=== PATIENT | male | born 1950 | race Caucasian/White ===

== ENCOUNTER → 2017-11-28 | Outpatient (CLI) | payer MEDICARE, OTHER ==
--- NOTE | 2017-11-28 17:43 | RADIOLOGY REPORT (SQ) ---
EXAM DESCRIPTION: FOOT RIGHT COMPLETE COMPLETED DATE/TIME: 11/28/2017 3:43 pm REASON FOR STUDY: PAIN IN RIGHT FOOT M79.671 PAIN IN RIGHT FOOT COMPARISON: None. NUMBER OF VIEWS: Three views. TECHNIQUE: AP, lateral and oblique without weight bearing radiographic images acquired of the right foot. LIMITATIONS: None. FINDINGS: MINERALIZATION: Normal. BONES: No acute fracture or dislocation. No worrisome bone lesions. Degenerative changes of the 1st m etatarsal phalangeal and the IP joint of the great toe. Dorsal osteophytes of the talonavicular join t. JOINTS: No erosions. No sj-articular osteopenia. No chondrocalcinosis. SOFT TISSUES: No swelling. No calcifications. OTHER: No other significant finding. IMPRESSION: Degenerative changes. No definite erosions. No acute fracture. TECHNICAL DOCUMENTATION: JOB ID: [id number] [employer]- All Rights Reserved
== END ==
LOC: OD 15:03
PROVIDERS: ATTEND Family Medicine
DX: M79.671 Pain in right foot (principal)

== ENCOUNTER → 2018-01-16 | Outpatient (CLI) | payer MEDICARE, OTHER ==
--- NOTE | 2018-01-16 10:32 | RADIOLOGY REPORT (SQ) ---
EXAM DESCRIPTION: U/S RETROPERITON (RENAL/AORTA) COMPLETED DATE/TIME: 01/16/2018 10:02 am REASON FOR STUDY: CKD, UNSPEC (N18.9) N18.9 CHRONIC KIDNEY DISEASE, UNSPECIFIED COMPARISON: Bilateral renal ultrasound 02/13/2008 TECHNIQUE: Dynamic and static grayscale images acquired of the kidneys and bladder and recorded on P ACS. Additional selected color Doppler and spectral images recorded. LIMITATIONS: None. FINDINGS: RIGHT KIDNEY: 12.5 cm in length with diffuse cortical thinning and increased echogenicity. 2.6 cm right upper pole renal cortical cyst. No solid or suspicious masses. No hydronephrosis. No calcifications. LEFT KIDNEY: 13.4 cm in length, with diffuse cortical thinning and increased echogenicity. No solid or suspicious masses. No hydronephrosis. No calcifications. BLADDER: No masses. OTHER FINDINGS: No other significant finding. IMPRESSION: No hydronephrosis. Bilateral medical renal disease TECHNICAL DOCUMENTATION: JOB ID: [id number] [employer]- All Rights Reserved Reading location - IP/workstation name: [email or web address]
== END ==
LOC: RAD 08:55
PROVIDERS: ATTEND Family Medicine
DX: N18.9 Chronic kidney disease, unspecified (principal)
CPT/HCPCS: 76770

== ENCOUNTER → 2018-04-11 | Outpatient (CLI) | payer MEDICARE, OTHER ==
--- NOTE | 2018-04-11 12:42 | RADIOLOGY REPORT (SQ) ---
EXAM DESCRIPTION: VENOUS UNILATERAL LOWER COMPLETED DATE/TIME: 04/11/2018 12:23 pm REASON FOR STUDY: RLE PAIN, ACUTE EMBOI I82.431 ACUTE EMBOLISM AND THROMBOSIS OF RIGHT POPLITEAL VE I COMPARISON: None. TECHNIQUE: Dynamic and static ross scale and color images acquired of the right leg venous system. S elected spectral images acquired with additional compression and augmentation maneuvers. The contrala teral common femoral vein and saphenofemoral junction were also imaged. Images stored on PACS. LIMITATIONS: None. FINDINGS: COMMON FEMORAL: Normal phasicity, compression and augmentation. No visualized echogenic ma terial on ross scale. No defects on color images. FEMORAL: Normal compression and augmentation. No visualized echogenic material on ross scale. No defe cts on color images. POPLITEAL: Normal compression, augmentation. No visualized echogenic material on ross scale. No defec ts on color images. CALF VESSELS: Normal compression, augmentation. No visualized echogenic material on ross scale. No de fects on color images. GSV and SSV: Normal compression, augmentation. No visualized echogenic material on ross scale. No def ects on color images. ANY DEEP VENOUS INSUFFICIENCY: Not evaluated. ANY EVIDENCE OF POPLITEAL CYST: No. OTHER: No other significant finding. CONTRALATERAL COMMON FEMORAL VEIN AND SAPHENOFEMORAL JUNCTION: Normal phasicity, compression and augmentation. No visualized echogenic material on ross scale. No de fects on color images. IMPRESSION: NO EVIDENCE DVT OR SVT IN THE RIGHT LEG. TECHNICAL DOCUMENTATION: JOB ID: [id number] [employer]- All Rights Reserved Reading location - IP/workstation name: [email or web address]
== END ==
LOC: SP 10:21
PROVIDERS: ATTEND Podiatrist Foot & Ankle Surgery
DX: I82.431 Acute embolism and thrombosis of right popliteal vein (principal)
CPT/HCPCS: 93971

== ENCOUNTER → 2018-04-20 | Outpatient (CLI) | payer MEDICARE, OTHER ==
--- NOTE | 2018-04-20 08:15 | RADIOLOGY REPORT (SQ) ---
EXAM DESCRIPTION: CT BONE LENGTH COMPLETED DATE/TIME: 04/20/2018 7:49 am REASON FOR STUDY: LLD (Q72.819) Q72.819 CONGENITAL SHORTENING OF UNSPECIFIED LOWER LIMB COMPARISON: None. TECHNIQUE: CT scanogram of the bilateral lower extremities is performed including pelvis to ankles. Measurements of femur, tibia, and entire lower extremities performed by the radiologist and saved to PACS. All CT scanners at this facility use dose modulation, iterative reconstruction, and/or weight based d osing when appropriate to reduce radiation dose to as low as reasonably achievable (ALARA). [facility]: Dose Right [facility]: CareDose [facility]: Dose Right [facility]: Teradose 4D [facility]: [place] RADIATION DOSE: Less than 1 mGy. LIMITATIONS: None. FINDINGS: RIGHT: FEMUR: 49.4 cm. TIBIA: 40.5 cm. TOTAL RIGHT LOWER EXTREMITY LENGTH: 90.5 cm. LEFT: FEMUR: 50 cm. TIBIA: 40.5 cm. TOTAL LEFT LOWER EXTREMITY LENGTH: 91.0 cm. IMPRESSION: LEG LENGTH MEASUREMENTS DETAILED ABOVE. TECHNICAL DOCUMENTATION: JOB ID: [id number] Quality ID # [id number]: Final reports with documentation of one or more dose reduction techniques (e.g., Au tomated exposure control, adjustment of the mA and/or kV according to patient size, use of iterative reconstruction technique) 2010 [employer]- All Rights Reserved Reading location - IP/workstation name: [email or web address]
== END ==
LOC: RAD 07:19
PROVIDERS: ATTEND Podiatrist Foot & Ankle Surgery
DX: Q72.819 Congenital shortening of unspecified lower limb (principal)
CPT/HCPCS: 77073

== ENCOUNTER 2018-09-21 05:33 | Emergency (ER) | payer MEDICARE, OTHER ==
--- NOTE | 2018-09-21 06:59 | RADIOLOGY REPORT (SQ) ---
EXAM DESCRIPTION: XR SHOULDER 2 OR MORE VIEWS COMPLETED DATE/TME: 09/21/2018 00:00 CLINICAL HISTORY: Pain. 68 years Male, fall COMPARISON: None. Findings: Mild osteoarthritis. Partially imaged cardiac stimulation leads and sternotomy.. Bones, joints, and soft tissues of the RIGHT XR SHOULDER 3 VIEWS appear otherwise intact. IMPRESSION: No acute findings.
--- NOTE | 2018-09-21 07:00 | RADIOLOGY REPORT (SQ) ---
EXAM DESCRIPTION: XR HIP 2 OR MORE VIEWS COMPLETED DATE/TME: 09/21/2018 00:00 CLINICAL HISTORY: Pain. 68 years Male, fall COMPARISON: None. Findings: Mild osteoarthritis. Atherosclerosis. Bones, joints, and soft tissues of the RIGHT XR HIP 2 OR MORE VIEWS appear otherwise intact. IMPRESSION: No acute findings.
--- NOTE | 2018-09-21 07:01 | RADIOLOGY REPORT (SQ) ---
EXAM DESCRIPTION: XR KNEE 1-2 VIEWS COMPLETED DATE/TME: 09/21/2018 00:00 CLINICAL HISTORY: 68 years Male, FALL COMPARISON: None. Findings: Right total knee arthroplasty. Small right knee effusion.. Atherosclerosis. Bones, joints, and soft tissues of the RIGHT XR KNEE 2 VIEWS appear otherwise intact. IMPRESSION: Small right knee effusion..
[2018-09-21 08:19] VITALS: BP 126/68
--- NOTE | 2018-09-21 08:21 | ER Document Report ---
ED Hip Pain/Injury - General Chief Complaint: Hip Pain Stated Complaint: RIGHT HIP/SHOULDER PAIN Time Seen by Provider: 09/21/18 07:48 Notes: 68-year-old male who was taking out the garbage and tripped and fell on the steps. Patient complains of right shoulder and right knee and hip pain. He denies hitting his head or neck or have any loss of consciousness. The patient describes the pain as achy is worse with movement. The patient had a history of knee replacement on the right he want to be sure that this was okay. He will be traveling to [facility]. Patient denies any abdominal pain no chest pain or shortness of breath he did not pass out or have syncope before or lose consciousness with the fall. He rates the pain is severe is worse with movement. TRAVEL OUTSIDE OF THE [place] IN LAST 30 DAYS: No - Related Data Allergies/Adverse Reactions: No Known Allergies Allergy (Verified 09/21/18 07:25) Past Medical History - Social History Smoking Status: Unknown if Ever Smoked Family History: None Patient has suicidal ideation: No Patient has homicidal ideation: No - Past Medical History Cardiac Medical History: Reports: Hx Coronary Artery Disease, Hx Heart Attack, Hx Hypertension Pulmonary Medical History: Denies: Hx Asthma, Hx Bronchitis, Hx COPD, Hx Pneumonia Neurological Medical History: Denies: Hx Cerebrovascular Accident Renal/ Medical History: Denies: Hx Peritoneal Dialysis Musculoskeletal Medical History: Denies Hx Arthritis Past Surgical History: Reports: Hx Orthopedic Surgery - right knee replacement - Immunizations Hx Diphtheria, Pertussis, Tetanus Vaccination: Yes Review of Systems - Review of Systems Constitutional: denies: Chills, Fever Cardiovascular: denies: Chest pain, Dyspnea Respiratory: denies: Short of breath Gastrointestinal: denies: Abdominal pain, Diarrhea, Nausea, Vomiting Musculoskeletal: Joint pain, Muscle pain Skin: No symptoms reported Neurological/Psychological: denies: Lost consciousness, Headaches -: Yes All other systems reviewed and negative Physical Exam - Vital signs Vitals: Temp Pulse Resp BP Pulse Ox 97.8 F 75 16 137/74 H 96 09/21/18 05:37 09/21/18 05:37 09/21/18 05:37 09/21/18 05:37 09/21/18 05:37 - Notes Notes: GENERAL_APPEARANCE: well_nourished, alert, cooperative VITALS: reviewed, see vital signs table. HEAD: no_swelling\tenderness on the head. EYES: PERRL, EOMI, conjunctiva_clear. NOSE: no_nasal_discharge. MOUTH: (-)decreased moisture. THROAT: no_tonsilar_inflammation, no_airway_obstruction. no_lymphadenopathy NECK: supple, no_neck_tenderness, (-)thyromegaly. BACK: no_back_tenderness. CHEST_WALL: no_chest_tenderness. ABDOMEN: normal_BS, soft, no_abd_tenderness, (-)guarding, (-)rebound, no_ organomegaly, no_abd_masses. EXTREMITIES: He has some mild tenderness of the right greater trochanter there is no rotation shortening or ecchymosis noted, right knee has a midline incision which is well-healed. There is a bruise noted. Otherwise there is no sniffing abnormalities of the knee there is strong dorsalis pedis pulses distal. No open wounds are noted. Right shoulder had a little bit of discomfort on active and passive range of motion notes deformity no swelling. SKIN: warm, dry, good_color, no_rash. MENTAL_STATUS: speech_clear, oriented_X_3, normal_affect, responds_ appropriately to questions. NEURO: Neg Motor or Sensory Deficits on exam, CN 2-12 intact, DTR 2+ symmetric x 4, No cerbellar signs Course - Re-evaluation Re-evalutation: 09/21/18 08:20 Elderly male mechanical fall. No fractures noted on x-rays he has bruised up. The knee had a little bit of an effusion but it is replaced knee is slightly due to bruising. He is able to walk without difficulty but he is sore. I advised him to use jjua-cng-dybedom medicines but there are no fractures noted he suffered no head or neck injuries. And will be discharged home. - Vital Signs Vital signs: Temp Pulse Resp BP Pulse Ox 97.8 F 75 16 137/74 H 96 09/21/18 05:37 09/21/18 05:37 09/21/18 05:37 09/21/18 05:37 09/21/18 05:37 - Diagnostic Test Radiology reviewed: Reports reviewed Radiology results interpreted by me: 09/21/18 08:20 Hip/Pelvis X-Ray 09/21/18 00:00 IMPRESSION: No acute findings. Knee X-Ray 09/21/18 00:00 IMPRESSION: Small right knee effusion.. Shoulder X-Ray 09/21/18 00:00 IMPRESSION: No acute findings. Discharge - Discharge Clinical Impression: Fall Qualifiers: Encounter type: initial encounter Qualified Code(s): W19.XXXA - Unspecified fall, initial encounter Contusion of right knee Qualifiers: Encounter type: initial encounter Qualified Code(s): S80.01XA - Contusion of right knee, initial encounter Contusion of right hip Qualifiers: Encounter type: initial encounter Qualified Code(s): S70.01XA - Contusion of right hip, initial encounter Sprain of right shoulder Qualifiers: Encounter type: initial encounter Shoulder sprain type: other part of shoulder region Qualified Code(s): S43.491A - Other sprain of right shoulder joint, initial encounter Condition: Good Disposition: HOME, SELF-CARE Instructions: Shoulder Injury ([facility]), Suspected Internal Knee Injury ([facility]) Additional Instructions: Please follow-up with your orthopedist as needed. No fractures were noted on your x-rays. Referrals: ZAIRA CAMACHO MD [Primary Care Provider] - Follow up as needed
== END 2018-09-21 08:25 | disposition home or self-care (01) ==
LOC: ER 05:33
DX: S80.01XA Contusion of right knee, initial encounter (principal); S70.01XA Contusion of right hip, initial encounter; S43.491A Other sprain of right shoulder joint, initial encounter; W10.9XXA Fall (on) (from) unspecified stairs and steps, initial encounter; Y93.E9 Activity, other interior property and clothing maintenance; I25.10 Atherosclerotic heart disease of native coronary artery without angina pectoris; I25.2 Old myocardial infarction; I10 Essential (primary) hypertension; Z96.651 Presence of right artificial knee joint
CPT/HCPCS: 99283

== ENCOUNTER 2019-04-06 08:44 | Emergency (ER) | payer MEDICARE, OTHER ==
--- NOTE | 2019-04-06 09:28 | ER Document Report ---
ED Medical Screen (RME) - General Chief Complaint: Bloody Stools Stated Complaint: ABNORMAL BLEEDING Time Seen by Provider: 04/06/19 09:18 Primary Care Provider: ZAIRA CAMACHO MD [Primary Care Provider] - Follow up as needed Notes: Patient is a 68-year-old male with a history of cardiac bypass, AICD placement, hypertension, high cholesterol who presents to the emergency department with a chief complaint of rectal bleeding. States that 3 days ago he noticed he was having black stools. Patient states he does have a history of GI bleed. Patient states over the past 3 days he has had 10 formed black stools. Patient denies bright red blood in his stools. Patient denies nausea vomiting or diarrhea. Patient denies abdominal pain. Patient states he is on Xarelto for "multiple heart issues." Patient states that he was diagnosed with vertigo 3 months ago as he was having symptoms of lightheadedness when getting up. States he continues to have the symptoms although the lightheadedness has gotten worse. Patient states he will get up, feel like he is going to pass out, and then the stabilizes. Patient denies passing out. Patient denies chest pain or shortness of breath. Patient states he wanted to get checked out before things got bad. - Related Data Allergies/Adverse Reactions: No Known Allergies Allergy (Verified 04/06/19 08:46) Past Medical History - Social History Chew tobacco use (# tins/day): No Frequency of alcohol use: None Drug Abuse: None - Past Medical History Cardiac Medical History: Reports: Hx Coronary Artery Disease, Hx Heart Attack, Hx Hypertension Pulmonary Medical History: Denies: Hx Asthma, Hx Bronchitis, Hx COPD, Hx Pneumonia Neurological Medical History: Denies: Hx Cerebrovascular Accident Renal/ Medical History: Denies: Hx Peritoneal Dialysis Musculoskeltal Medical History: Denies Hx Arthritis Past Surgical History: Reports: Hx Orthopedic Surgery - right knee replacement - Immunizations Hx Diphtheria, Pertussis, Tetanus Vaccination: Yes Physical Exam - Vital signs Vitals: Temp Pulse Resp BP Pulse Ox 97.7 F 67 16 154/73 H 96 04/06/19 08:52 04/06/19 08:52 04/06/19 08:52 04/06/19 08:52 04/06/19 08:52 Interpretation: Hypertensive - Abdominal Notes: Obese, round abdomen, soft, nontender. Course - Re-evaluation Re-evalutation: 04/06/19 09:28 I have greeted and performed a rapid initial assessment of this patient. A comprehensive ED assessment and evaluation of the patient, analysis of test results and completion of the medical decision making process will be conducted by additional ED providers. - Vital Signs Vital signs: Temp Pulse Resp BP Pulse Ox 97.7 F 67 16 154/73 H 96 04/06/19 08:52 04/06/19 08:52 04/06/19 08:52 04/06/19 08:52 04/06/19 08:52 Doctor's Discharge - Discharge Referrals: ZAIRA CAMACHO MD [Primary Care Provider] - Follow up as needed
[2019-04-06] MEDS ORDERED: PANTOPRAZOLE SODIUM 40 MG VIAL IV ONE (10:10)
--- NOTE | 2019-04-06 10:12 | ER Document Report ---
ED General - General Chief Complaint: Bloody Stools Stated Complaint: ABNORMAL BLEEDING Time Seen by Provider: 04/06/19 09:18 Primary Care Provider: ZAIRA CAMACHO MD [Primary Care Provider] - Follow up as needed Notes: Patient with history of bleeding ulcers on Xarelto presents with rectal bleeding. Describes dark tarry stool for about 3 weeks worsening. No belly pain. No bright red blood. Had a colonoscopy in the last year which was normal. History of bleeding ulcer. Now he is getting dizzy when he stands up. Was with Dr. Yan from GI TRAVEL OUTSIDE OF THE [place] IN LAST 30 DAYS: No - Related Data Allergies/Adverse Reactions: No Known Allergies Allergy (Verified 04/06/19 08:46) Past Medical History - Social History Smoking Status: Never Smoker Chew tobacco use (# tins/day): No Frequency of alcohol use: None Drug Abuse: None Family History: None Patient has suicidal ideation: No Patient has homicidal ideation: No - Past Medical History Cardiac Medical History: Reports: Hx Coronary Artery Disease, Hx Heart Attack, Hx Hypertension Pulmonary Medical History: Denies: Hx Asthma, Hx Bronchitis, Hx COPD, Hx Pneumonia Neurological Medical History: Denies: Hx Cerebrovascular Accident Renal/ Medical History: Denies: Hx Peritoneal Dialysis Musculoskeletal Medical History: Denies Hx Arthritis Past Surgical History: Reports: Hx Orthopedic Surgery - right knee replacement - Immunizations Hx Diphtheria, Pertussis, Tetanus Vaccination: Yes Review of Systems - Review of Systems Notes: REVIEW OF SYSTEMS GEN: Denies fever, chills, weight loss ENT: Denies sore throat, nasal discharge, ear pain EYES: Denies blurry vision, eye pain, discharge CV: Denies chest pain, palpitations, edema RESP: Denies cough, shortness of breath, wheezing GI: June MSK: Denies joint pain/swelling, edema, SKIN: Denies rash, skin lesions LYMPH: Denies swollen glands/lymph nodes NEURO: Denies headache, focal weakness or numbness, dizziness PSYCH: Denies depression, suicidal or homicidal ideation PHYSICAL EXAMINATION General: No acute distress, well-nourished Head: Atraumatic, normocephalic ENT: Mouth normal, oropharynx moist, no exudates or tonsillar enlargement Eyes: Conjunctiva normal, pupils equal, lids normal Neck: No JVD, supple, no guarding CVS: Normal rate, regular rhythm, no murmurs Resp: No resp distress, equal and normal breath sounds bilaterally GI: Melena present Ext: No deformities, no edema, normal range of motion in upper and lower ext Back: No CVA or midline TTP Skin: No rash, warm Lymphatic: No lymphadeopathy noted Neuro: Awake, alert. Face symmetric. GCS 15. Physical Exam - Vital signs Vitals: Temp Pulse Resp BP Pulse Ox 97.7 F 67 16 154/73 H 96 04/06/19 08:52 04/06/19 08:52 04/06/19 08:52 04/06/19 08:52 04/06/19 08:52 Course - Re-evaluation Re-evalutation: 04/06/19 10:11 Upper GI bleed with melena. Hemodynamically stable. Beginning to get symptomatic likely from anemia. Will assess degree of anemia. GI bleed seems slow clinically. Given Protonix bolus. We will hold off on drip. No liver disease and octreotide. Type and screen sent for possible transfusion. 04/06/19 12:01 Patient hemoglobin is stable at 11.5 over the past month. He now tells me this is been going on for 3 months. I offered admission/transfer for GI endoscopy but he does not want to wait. I spoke with his GI doctor, Dr. Yan, who says he cannot scope the patient over the weekend if he were to be admitted. He did offer to scope the patient next week. The patient had a very long conversation which expressed a desire not to stay and thinks that he is stable. Rather than signing him out AMA I did give him all proper return precautions. He has a history of stroke and has been on anti-coag elation for a while now, and I think is probably worse to take him off of his anticoagulant and so we kept it on out of the twice daily proton pump inhibitor. Dr. Nevarez schedule the patient for an endoscopy this coming 10:45 in the morning. I have discussed with the patient there likely diagnosis, aftercare plan, follow-up plans and my usual and customary return precautions. They verbalized understanding of this. - Vital Signs Vital signs: Temp Pulse Resp BP Pulse Ox 98.6 F 62 16 116/82 98 04/06/19 11:05 04/06/19 11:05 04/06/19 11:05 04/06/19 11:05 04/06/19 11:05 - Laboratory Result Diagrams: 04/06/19 10:20 04/06/19 10:20 Laboratory results interpreted by me: 04/06/19 04/06/19 04/06/19 10:20 10:20 10:20 RBC 3.71 L Hgb 11.5 L Hct 34.2 L RDW 17.6 H PT 18.8 H APTT 39.1 H Potassium 5.2 H BUN 60 H Creatinine 1.59 H Est GFR ( Amer) 52 L Est GFR (Non-Af Amer) 43 L Glucose 73 L Urine Ascorbic Acid 04/06/19 10:20 RBC Hgb Hct RDW PT APTT Potassium BUN Creatinine Est GFR ( Amer) Est GFR (Non-Af Amer) Glucose Urine Ascorbic Acid 40 H Discharge - Discharge Clinical Impression: Melena Condition: Fair Disposition: HOME, SELF-CARE Instructions: Rectal Bleeding, Unclear Cause ([facility]) Additional Instructions: As we discussed, you are having an upper gastrointestinal bleed. It is worsened by the fact that you are on a blood thinner. After discussion of the risks and benefits, and recommendation that you stay to be transferred given that we do not have a GI doctor to scope you you have elected to be discharged. It is very important that he return the emergency room for any worse dizziness dark stool bloody stool or vomiting blood. Please also return to the ER for any other concerning symptoms. I spoken with Dr. NAGEL who has scheduled you for 10:30 in the morning this coming for an endoscopy. His office will contact call you with instructions Prescriptions: RX: Lansoprazole [Prevacid] 30 mg PO BID #30 capsule. Referrals: ZAIRA CAMACHO MD [Primary Care Provider] - Follow up as needed
[2019-04-06 10:47] LABS: ABSOLUTE BASOPHILS # (AUTO) 0.1 10^3/uL (0.0-0.2); ABSOLUTE EOSINOPHILS # (AUTO) 0.3 10^3/uL (0.0-0.6); ABSOLUTE LYMPHOCYTES (AUTO) 1.6 10^3/uL (0.5-4.7); ABSOLUTE MONOCYTES (AUTO) 0.7 10^3/uL (0.1-1.4); ABSOLUTE NEUT (AUTO) 5.3 10^3/uL (1.7-8.2); BASOPHILS % (AUTO) 0.8 % (0-2); HEMATOCRIT 34.2 % (37.9-51.0); HEMOGLOBIN 11.5 g/dL (13.5-17.0); MEAN CORPUSCULAR HEMOGLOBIN 31.1 pg (27.0-33.4); MEAN CORPUSCULAR HGB CONC 33.7 g/dL (32.0-36.0); MEAN CORPUSCULAR VOLUME 92 fl (80-97); PLATELET COUNT 209 10^3/uL (150-450); RED BLOOD COUNT 3.71 10^6/uL (4.35-5.55); RED CELL DISTRIBUTION WIDTH 17.6 % (11.5-14.0); SEGMENTED NEUTROPHILS % (AUTO) 66.2 % (42-78); TOTAL CELLS COUNTED % (AUTO) 100 %
[2019-04-06 10:53] LABS: INTERNATIONAL RATION (INR) 1.49; PROTHROMBIN TIME 18.8 SEC (11.4-15.4)
[2019-04-06 10:54] LABS: PARTIAL THROMBOPLASTIN TIME 39.1 SEC (23.5-35.8)
[2019-04-06 10:58] LABS: APPEARANCE,URINE CLEAR; BILIRUBIN,URINE NEGATIVE (NEGATIVE); COLOR,URINE YELLOW; GLUCOSE, URINE NEGATIVE (NEGATIVE); KETONES,URINE NEGATIVE (NEGATIVE); LEUKOCYTE ESTERASE,URINE NEGATIVE (NEGATIVE); NITRITE,URINE NEGATIVE (NEGATIVE); PROTEIN,URINE NEGATIVE (NEGATIVE); URINE SPECIFIC GRAVITY 1.009; UROBILINOGEN,URINE NEGATIVE mg/dL (<2.0)
[2019-04-06 11:06] VITALS: BP 116/82
[2019-04-06 11:09] LABS: ALANINE AMINOTRANSFERASE 27 U/L (21-72); ALBUMIN 4.3 g/dL (3.5-5.0); ALKALINE PHOSPHATASE 55 U/L (38-126); ANION GAP 10 (5-19); ASPARTATE AMINO TRANSFERASE 28 U/L (17-59); BILIRUBIN,DIRECT 0.3 mg/dL (0.0-0.4); BILIRUBIN,TOTAL 0.8 mg/dL (0.2-1.3); BLOOD UREA NITROGEN 60 mg/dL (7-20); CALCIUM 9.2 mg/dL (8.4-10.2); CARBON DIOXIDE 24 mmol/L (22-30); CHLORIDE 106 mmol/L (98-107); GLUCOSE 73 mg/dL (75-110); POTASSIUM 5.2 mmol/L (3.6-5.0); SODIUM 139.7 mmol/L (137-145)
== END 2019-04-06 11:10 | disposition home or self-care (01) ==
LOC: ER 08:44
DX: K92.1 Melena (principal); R42 Dizziness and giddiness; I25.10 Atherosclerotic heart disease of native coronary artery without angina pectoris; I10 Essential (primary) hypertension; I25.2 Old myocardial infarction; Z79.02 Long term (current) use of antithrombotics/antiplatelets; Z53.29 Procedure and treatment not carried out because of patient's decision for other reasons
CPT/HCPCS: 99284; 96365; 86900; 86901; 36415; 86850; 85025; 85610; 85730; 80053; 81001; C9113; S0164

== ENCOUNTER 2019-04-24 21:52 | Emergency (ER) | payer MEDICARE, OTHER ==
[2019-04-24] MEDS ORDERED: METHYLPREDNISOLONE INJ 125 MG/2 ML SDV IV ONE (23:43)
[2019-04-24] MEDS ORDERED: FAMOTIDINE INJ/PF 20 MG/2 ML SDV IV ONE (23:43)
[2019-04-25 00:05] VITALS: BP 106/66
[2019-04-25] MEDS ORDERED: DIPHENHYDRAMINE HCL 50 MG CAPSULE PO ONE (00:06)
--- NOTE | 2019-04-25 00:13 | ER Document Report ---
ED General - General Chief Complaint: Allergic Reaction Stated Complaint: POSSIBLE ALLERGIC REACTION, SWELLING THROAT, ITCH Time Seen by Provider: 04/24/19 23:16 Primary Care Provider: ZAIRA CAMACHO MD [Primary Care Provider] - Follow up as needed Mode of Arrival: Ambulatory Information source: Patient TRAVEL OUTSIDE OF THE [place] 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 Tonight he noted some swelling in the location where he was having the cream applied left greater than right side of the face with sensation that he was having mild trouble clearing his throat and swallowing. The patient denies any chest pain or difficulty breathing or fever or chills or nausea or vomiting. No other skin rash. No constipation, diarrhea, dysuria. No abdominal pain. No other medication changes. - Related Data Allergies/Adverse Reactions: No Known Allergies Allergy (Verified 04/24/19 22:06) Past Medical History - General Information source: Patient - Social History Smoking Status: Unknown if Ever Smoked Frequency of alcohol use: None Drug Abuse: None Lives with: Alone Family History: None - Past Medical History Cardiac Medical History: Reports: Hx Coronary Artery Disease, Hx Heart Attack, Hx Hypertension Pulmonary Medical History: Denies: Hx Asthma, Hx Bronchitis, Hx COPD, Hx Pneumonia Neurological Medical History: Denies: Hx Cerebrovascular Accident Renal/ Medical History: Denies: Hx Peritoneal Dialysis Musculoskeletal Medical History: Denies Hx Arthritis Past Surgical History: Reports: Hx Orthopedic Surgery - right knee replacement - Immunizations Hx Diphtheria, Pertussis, Tetanus Vaccination: Yes Review of Systems - Review of Systems -: Yes All other systems reviewed and negative Physical Exam - Vital signs Vitals: Temp Pulse Resp BP Pulse Ox 98.0 F 78 22 H 126/67 H 97 04/24/19 22:09 04/24/19 22:09 04/24/19 22:09 04/24/19 22:09 04/24/19 22:09 - Notes Notes: PHYSICAL EXAMINATION: GENERAL: Well-appearing, well-nourished and in no acute distress. HEAD: Atraumatic, normocephalic. EYES: Pupils equal round and reactive to light, extraocular movements intact, sclera anicteric, conjunctiva are normal. ENT: Nares patent, oropharynx clear without exudates. Moist mucous membranes. Patient has mild swelling left greater than right lower face where he was applying the cream. No obvious cellulitis or evidence for abscess. Posterior pharynx is clear without evidence for swelling. Good dentition without evidence for infection. NECK: Normal range of motion, supple without lymphadenopathy LUNGS: Breath sounds clear to auscultation bilaterally and equal. No wheezes rales or rhonchi. HEART: Regular rate and rhythm without murmurs ABDOMEN: Soft, nontender, nondistended abdomen. No guarding, no rebound. No masses appreciated. Musculoskeletal: Normal range of motion, no pitting or edema. No cyanosis. NEUROLOGICAL: Cranial nerves grossly intact. Normal speech, normal gait. Normal sensory, motor exams . PSYCH: Normal mood, normal affect. SKIN: Warm, Dry, normal turgor, no rashes or lesions noted. Course - Re-evaluation Re-evalutation: 04/25/19 00:13 Patient was given IV Solu-Medrol and Pepcid and had significant improvement in his symptoms. He was able to swallow without difficulty. No evidence for anaphylaxis or hypotension or systemic reaction or respiratory compromise. - Vital Signs Vital signs: Temp Pulse Resp BP Pulse Ox 97.6 F 78 14 106/66 97 04/25/19 00:00 04/24/19 22:09 04/25/19 00:00 04/25/19 00:00 04/25/19 00:00 Discharge - Discharge Clinical Impression: Allergic reaction caused by a drug Qualifiers: Encounter type: initial encounter Qualified Code(s): T78.40XA - Allergy, unspecified, initial encounter Condition: Stable Disposition: HOME, SELF-CARE Instructions: Acute Allergic Reaction to Drugs ([facility]) Additional Instructions: Stop using the ketoconazole and triamcinolone creams. Take Benadryl as directed for any recurrent rash or itching or swelling. Take prednisone taper if your allergic reaction symptoms and swelling continue. Return to the emergency department in case of worsening swelling or difficulty breathing. Prescriptions: Prednisone [Deltasone 10 mg Tablet] 10 mg PO ASDIR PRN #21 tablet PRN Reason: Referrals: ZAIRA CAMACHO MD [Primary Care Provider] - Follow up as needed
== END 2019-04-25 00:27 | disposition home or self-care (01) ==
LOC: ER 21:52
DX: T78.40XA Allergy, unspecified, initial encounter (principal); R21 Rash and other nonspecific skin eruption; Z79.899 Other long term (current) drug therapy; I25.10 Atherosclerotic heart disease of native coronary artery without angina pectoris; I10 Essential (primary) hypertension
CPT/HCPCS: 99283; 96374; 96375; A9270; J2930; S0028

== ENCOUNTER → 2020-04-16 | Outpatient (CLI) | payer MEDICARE, OTHER ==
--- NOTE | 2020-04-16 11:40 | RADIOLOGY REPORT (SQ) ---
EXAM DESCRIPTION: VENOUS UNILATERAL LOWER IMAGES COMPLETED DATE/TIME: 04/16/2020 11:07 am REASON FOR STUDY: LLE PAIN M79.662 PAIN IN LEFT LOWER LEG COMPARISON: None. TECHNIQUE: Dynamic and static ross scale and color images acquired of the left leg venous system. Se lected spectral images acquired with additional compression and augmentation maneuvers. The contralat eral common femoral vein and saphenofemoral junction were also imaged. Images stored on PACS. LIMITATIONS: None. FINDINGS: COMMON FEMORAL: Normal phasicity, compression and augmentation. No visualized echogenic ma terial on ross scale. No defects on color images. FEMORAL: Normal compression and augmentation. No visualized echogenic material on ross scale. No defe cts on color images. POPLITEAL: Normal compression, augmentation. No visualized echogenic material on ross scale. No defec ts on color images. CALF VESSELS: Normal compression, augmentation. No visualized echogenic material on ross scale. No de fects on color images. GSV and SSV: Normal compression, augmentation. No visualized echogenic material on ross scale. No def ects on color images. ANY DEEP VENOUS INSUFFICIENCY: Not evaluated. ANY EVIDENCE OF POPLITEAL CYST: There is a complex 6.6 x 2.4 x 4.5 cm fluid collection in the poplite al fossa consistent with popliteal cyst. OTHER: No other significant finding. CONTRALATERAL COMMON FEMORAL VEIN AND SAPHENOFEMORAL JUNCTION: Normal phasicity, compression and augmentation. No visualized echogenic material on ross scale. No de fects on color images. IMPRESSION: 1. No evidence of DVT or SVT in the left leg. 2. Complex 6.6 x 2.4 x 4.5 cm fluid collection in the popliteal fossa most likely representing compl ex popliteal cyst. TECHNICAL DOCUMENTATION: JOB ID: [id number] 2010 [employer]- All Rights Reserved Reading location - IP/workstation name: [email or web address]
== END ==
LOC: SP 10:09
PROVIDERS: ATTEND Orthopaedic Surgery Sports Medicine
DX: M79.662 Pain in left lower leg (principal)
CPT/HCPCS: 93971

== ENCOUNTER 2020-07-03 03:00 | Emergency (ER) | payer MEDICARE, OTHER ==
--- NOTE | 2020-07-03 03:37 | ER Document Report ---
ED Medical Screen (RME) - General Chief Complaint: Testicular Swelling Stated Complaint: SWOLLEN TESTICLES Time Seen by Provider: 07/03/20 03:30 Primary Care Provider: GIO MARLOW MD [Primary Care Provider] - Follow up as needed Notes: This patient is a 70-year-old male who presents emergency department with a chief complaint of testicular pain. Patient states that his symptoms started on Tuesday, which was 2 days ago. Patient states that he has an appointment with his urologist and 9:00 in the morning. Patient states that the pain is getting worse. States that the area has been bleeding. States that he has had some chills. Exam: Exam limited due to patient in triage and not in a gown. I am not quite sure if the patient is hard of hearing, or confused. He did not answer questions appropriately, but was able to recall events related to HPI. I have greeted and performed a rapid initial assessment of this patient. A comprehensive ED assessment and evaluation of the patient, analysis of test results and completion of medical decision making process will be conducted by an additional ED providers. TRAVEL OUTSIDE OF THE [place] IN LAST 30 DAYS: No - Related Data Allergies/Adverse Reactions: No Known Allergies Allergy (Verified 07/03/20 03:29) Past Medical History - Past Medical History Cardiac Medical History: Reports: Hx Coronary Artery Disease, Hx Heart Attack, Hx Hypertension Pulmonary Medical History: Denies: Hx Asthma, Hx Bronchitis, Hx COPD, Hx Pneumonia Neurological Medical History: Denies: Hx Cerebrovascular Accident Renal/ Medical History: Denies: Hx Peritoneal Dialysis Musculoskeltal Medical History: Denies Hx Arthritis Past Surgical History: Reports: Hx Orthopedic Surgery - right knee replacement - Immunizations Hx Diphtheria, Pertussis, Tetanus Vaccination: Yes Physical Exam - Vital signs Vitals: Temp Pulse Resp BP Pulse Ox 98.2 F 90 20 153/91 H 96 07/03/20 03:07/03/20 03:07/03/20 03:07/03/20 03:07/03/20 03:26 Course - Vital Signs Vital signs: Temp Pulse Resp BP Pulse Ox 98.2 F 90 20 153/91 H 96 07/03/20 03:07/03/20 03:07/03/20 03:07/03/20 03:07/03/20 03:26 Doctor's Discharge - Discharge Referrals: GIO MARLOW MD [Primary Care Provider] - Follow up as needed
--- NOTE | 2020-07-03 04:53 | RADIOLOGY REPORT (SQ) ---
TESTICULAR ULTRASOUND: 07/03/2020 3:50 AM CDT HISTORY: 70-year old patient with testicular pain and bleeding. COMPARISON: None available TECHNIQUE: Multiple longitudinal and transverse sonographic images were obtained of the right and left testicle. Color and spectral doppler images were obtained of the testicular vasculature. FINDINGS: Both testicles appear homogenous without evidence of a mass. There is diffuse scrotal wall thickening present. The left testicle appears normal in size, and it measures 3.8 x 3.0 x 2.2 cm. The left testicle appears homogeneous in echotexture and demonstrates arterial blood flow within the testicle. The left epididymal head appears normal in size and does not appear hyperemic. There is an epididymal head cyst or spermatocele measuring at least 1.2 cm on the left. The right testicle appears normal in size, and it measures 3.7 x 2.8 x 2.3 cm. The right testicle appears homogeneous in echotexture and demonstrates good arterial blood flow within the testicle. The right epididymal head appears normal in size and does not appear hyperemic. There is a heterogeneous hypoechoic area noted on the underside of the scrotum measuring at least 5.5 x 4.9 x 3.2 cm. This has increased peripheral vascularity. There may be some internal air. IMPRESSION: 1. No evidence is seen to suggest testicular torsion. 2. No intratesticular mass is seen. 3. There is a fluid collection concerning for an abscess at the inferior aspect of the scrotum. This may have some internal air. Necrotizing fasciitis is not excluded.
[2020-07-03] MEDS ORDERED: ONDANSETRON HCL INJ/PF 4 MG/2 ML SDV IV ONE (06:37)
[2020-07-03] MEDS ORDERED: PIPERACILLIN/TAZOBACTAM 3.375 GM VIAL IV ONE (06:37)
[2020-07-03] MEDS ORDERED: MORPHINE SULFATE 10 MG/ML INJ IV ONE (06:38)
[2020-07-03] MEDS ORDERED: NORMAL SALINE 1000 ML 1,000 ML IV ONE ×2 (06:38→11:05)
--- NOTE | 2020-07-03 06:46 | ER Document Report ---
ED General - General Chief Complaint: Testicular Pain Stated Complaint: SWOLLEN TESTICLES Time Seen by Provider: 07/03/20 03:30 Primary Care Provider: GIO MARLOW MD [Primary Care Provider] - Follow up as needed TRAVEL OUTSIDE OF THE [place] IN LAST 30 DAYS: No - HPI Notes: Chief complaint: Testicular pain and low back pain History of present illness: 70-year-old male presents with 48-hour history of severe low back pain and testicular swelling and pain. He is noted some purulent drainage on his underwear. He denies fever chills. He denies nausea vomiting. He saw PA in the office in [facility] at onset of symptoms and he says he was given oxycodone and not given a specific diagnosis. He feels his condition is getting worse he describes his pain is 10/10 currently. Patient is a rambling rather poor historian. 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 He is not diabetic. He reports no allergies. Denies use of tobacco or alcohol. His only other previous major surgery was a right knee replacement. - Related Data Allergies/Adverse Reactions: No Known Allergies Allergy (Verified 07/03/20 03:29) Past Medical History - General Information source: Patient, [facility] Records - Social History Smoking Status: Former Smoker Frequency of alcohol use: None Drug Abuse: None Family History: None - Past Medical History Cardiac Medical History: Reports: Hx Atrial Fibrillation, Hx Coronary Artery Disease, Hx Heart Attack, Hx Hypertension Pulmonary Medical History: Denies: Hx Asthma, Hx Bronchitis, Hx COPD, Hx Pneumonia Neurological Medical History: Denies: Hx Cerebrovascular Accident Endocrine Medical History: Denies: Hx Diabetes Mellitus Type 1, Hx Diabetes Mellitus Type 2 Renal/ Medical History: Denies: Hx Peritoneal Dialysis Musculoskeletal Medical History: Denies Hx Arthritis Past Surgical History: Reports: Hx Orthopedic Surgery - right knee replacement - Immunizations Hx Diphtheria, Pertussis, Tetanus Vaccination: Yes Review of Systems - Review of Systems Notes: Constitutional: Negative for fever. HENT: Negative for sore throat. Eyes: Negative for visual changes. Cardiovascular: Negative for chest pain. Respiratory: Negative for shortness of breath. Gastrointestinal: Negative for abdominal pain, vomiting or diarrhea. Genitourinary: As per HPI. Musculoskeletal: As per HPI. Skin: Negative for rash. Neurological: Negative for headaches, weakness or numbness. 10 point ROS negative except as marked above and in HPI. Physical Exam - Vital signs Vitals: Temp Pulse Resp BP Pulse Ox 98.2 F 90 20 153/91 H 96 07/03/20 03:07/03/20 03:07/03/20 03:07/03/20 03:07/03/20 03:26 - Notes Notes: GENERAL: Mildly obese elderly man who appears in moderate discomfort. SKIN: Good turgor no rashes. HEAD: Normocephalic atraumatic. EYES: PERRLA. EOMI. Conjunctivae and sclerae clear. EARS: CANALS AND TMS CLEAR. NOSE: CLEAR. MOUTH: Moist mucosa. Good dentition. No stridor or edema. No drooling. NECK: Supple. No masses or thyromegaly. No adenopathy. Carotids 2+ without bruits. No JVD. BACK: Symmetrical without tenderness. CHEST: Respirations unlabored. Breath sounds clear and symmetrical. HEART: Healed CABG scar present. Regular rhythm. No murmur gallop or rub. ABDOMEN: Soft mildly obese nontender without masses, organomegaly or rebound. Bowel sounds normally active. No bruits. GENITALIA: Uncircumcised male. Patient has a 5.0 cm diameter area of fluctuance and tenderness with some purulent drainage along the midline posterior scrotum. This area is exquisitely tender and red. EXTREMITIES: No edema. No calf tenderness. Cap refill less than 1.5 seconds. Dorsalis pedis and posterior tibial pulses 3+ and symmetrical. NEUROLOGICAL: GCS 15. Slight latency in answering questions and seems to have difficulty recalling details of his history but otherwise oriented x3. Normal gait. Fluent speech. Cranial nerves II through XII intact. Sensorimotor and cerebellar normal. Normal tone. PSYCHIATRIC: Appropriate affect. Course - Re-evaluation Re-evalutation: 07/03/20 08:35 Clinically the patient has a scrotal abscess. Ultrasound raises possibility of necrotizing fasciitis. This man does not look toxic although his mentation and affect are a bit unusual. I suspect he may have some early dementia. His white count here is normal he has no fever. His blood pressure is stable. His lactate is not elevated. His blood glucose is normal. He has some mild renal insufficiency with a creatinine about 1.67. We do not have a urologist available locally. I spoke with Dr. Batres who is the on-call urologist at [facility] where the patient was supposed to have an appointment today with his associate Dr. Chawla. Dr. Batres agrees that he needs to be evaluated by urologist and we will asked the hosp italist to accept transfer. I subsequently heard from Dr. Thomas who is the on-call hospitalist and he is excepting the patient pending bed assignment. EMTALA form completed. Findings, clinical impression and plan of treatment have been discussed with patient/family. Understanding of current findings and recommendations has been acknowledged by them and there is agreement regarding disposition and follow-up. - Vital Signs Vital signs: Temp Pulse Resp BP Pulse Ox 98.3 F 90 29 H 135/73 H 95 07/03/20 07:00 07/03/20 03:26 07/03/20 08:01 07/03/20 08:01 07/03/20 08:01 - Laboratory Result Diagrams: 07/03/20 06:40 07/03/20 06:40 Laboratory results interpreted by me: 07/03/20 07/03/20 06:40 06:40 RBC 4.32 L RDW 15.7 H Lymph % (Auto) 11.5 L Absolute Neuts (auto) 8.3 H Seg Neutrophils % 79.0 H Chloride 109 H BUN 35 H Creatinine 1.68 H Est GFR ( Amer) 49 L Est GFR (MDRD) Non-Af 40 L - Diagnostic Test Radiology reviewed: Reports reviewed - Scrotal ultrasound per radiologist: Patient has a 5 x 3 x 4 cm area of apparent abscess formation midline scrotum. There is some gas is not suggesting the possibility of necrotizing fasciitis. There is no testicular torsion or abnormality of testicular blood flow. - EKG Interpretation by Me Additional EKG results interpreted by me: 07/03/20 07:23 Twelve-lead EKG reviewed by me contemporaneously: 0716 hrs. Indication for study: Preop Rhythm: Normal sinus rhythm Rate: 73 Intervals: Normal QRS axis: +[address]/T wave changes: None Comparison with prior tracing: None Interpretation: Normal tracing Discharge - Discharge Clinical Impression: Scrotal abscess Condition: Good Disposition: [facility] Referrals: GIO MARLOW MD [Primary Care Provider] - Follow up as needed
[2020-07-03 07:10] LABS: ABSOLUTE BASOPHILS # (AUTO) 0.1 10^3/uL (0.0-0.2); ABSOLUTE EOSINOPHILS # (AUTO) 0.1 10^3/uL (0.0-0.6); ABSOLUTE LYMPHOCYTES (AUTO) 1.2 10^3/uL (0.5-4.7); ABSOLUTE MONOCYTES (AUTO) 0.9 10^3/uL (0.1-1.4); ABSOLUTE NEUT (AUTO) 8.3 10^3/uL (1.7-8.2); BASOPHILS % (AUTO) 0.6 % (0-2); EOSINOPHILS % (AUTO) 0.5 % (0-6); HEMATOCRIT 41.1 % (37.9-51.0); HEMOGLOBIN 14.2 g/dL (13.5-17.0); LYMPHOCYTES % (AUTO) 11.5 % (13-45); MEAN CORPUSCULAR HEMOGLOBIN 32.9 pg (27.0-33.4); MEAN CORPUSCULAR HGB CONC 34.6 g/dL (32.0-36.0); MEAN CORPUSCULAR VOLUME 95 fl (80-97); MONOCYTES % (AUTO) 8.4 % (3-13); PLATELET COUNT 235 10^3/uL (150-450); RED BLOOD COUNT 4.32 10^6/uL (4.35-5.55); RED CELL DISTRIBUTION WIDTH 15.7 % (11.5-14.0); TOTAL CELLS COUNTED % (AUTO) 100 %; WHITE BLOOD COUNT 10.5 10^3/uL (4.0-10.5)
[2020-07-03 07:30] LABS: ALBUMIN 4.5 g/dL (3.5-5.0); ALKALINE PHOSPHATASE 111 U/L (38-126); ANION GAP 11 (5-19); ASPARTATE AMINO TRANSFERASE 43 U/L (17-59); BILIRUBIN,DIRECT 0.4 mg/dL (0.0-0.4); BILIRUBIN,TOTAL 0.9 mg/dL (0.2-1.3); BLOOD UREA NITROGEN 35 mg/dL (7-20); CALCIUM 10.2 mg/dL (8.4-10.2); CARBON DIOXIDE 22 mmol/L (22-30); CHLORIDE 109 mmol/L (98-107); GLUCOSE 106 mg/dL (75-110); POTASSIUM 4.9 mmol/L (3.6-5.0); TOTAL PROTEIN 7.5 g/dL (6.3-8.2)
--- NOTE | 2020-07-03 07:37 | RADIOLOGY REPORT (SQ) ---
CLINICAL HISTORY: pre-op COMPARISON: None. TECHNIQUE: XR CHEST 1 VIEW 07/03/2020 6:40 AM CDT FINDINGS: The heart is enlarged. Sternotomy was performed. Left dual-chamber AICD is present. Lungs are clear without consolidation, atelectasis, mass or edema. There is no pleural effusion. There is no pneumothorax. There are no acute osseous findings. IMPRESSION: Clear lungs.
--- NOTE | 2020-07-03 09:17 | EKG REPORT ---
SEVERITY:- ABNORMAL ECG - SINUS RHYTHM NONSPECIFIC INTRAVENTRICULAR CONDUCTION DELAY : Confirmed by: Trenton Shanks 03-Jul-2020 09:16:44
[2020-07-03 10:31] VITALS: BP 131/71
[2020-07-03 10:34] LABS: APPEARANCE,URINE CLEAR; BILIRUBIN,URINE NEGATIVE (NEGATIVE); COLOR,URINE YELLOW; GLUCOSE, URINE NEGATIVE (NEGATIVE); KETONES,URINE NEGATIVE (NEGATIVE); PROTEIN,URINE NEGATIVE (NEGATIVE); URINE SPECIFIC GRAVITY 1.017; UROBILINOGEN,URINE NEGATIVE mg/dL (<2.0)
== END 2020-07-03 11:20 | disposition short-term general hospital (02) ==
LOC: ER 03:00
DX: N49.2 Inflammatory disorders of scrotum (principal); N50.89 Other specified disorders of the male genital organs; N50.819 Testicular pain, unspecified; M54.5 Low back pain; Z79.899 Other long term (current) drug therapy; Z87.891 Personal history of nicotine dependence; I25.10 Atherosclerotic heart disease of native coronary artery without angina pectoris; I25.2 Old myocardial infarction; I10 Essential (primary) hypertension
CPT/HCPCS: 93005; 99285; 96361; 96375; 96365; 36415; 87040; 83605; 85025; 80053; 81001; 71045; 76870; 93976; 93010; J2270; J2405; J7030; J2543